=== PATIENT | female | born 1985 | race Caucasian/White ===

== ENCOUNTER 2019-06-09 19:40 | Emergency (ER) | payer OTHER ==
[~2019-06-09] VITALS: Ht 170.2 cm; Wt 66.7 kg
--- NOTE | 2019-06-09 20:04 | PHYS DOC ---
Past History Past Medical History: No Pertinent History Past Surgical History: Oophorectomy Additional Past Surgical Histo: ectopic with right side oophorectomy, hiatal hernia repair Alcohol Use: Rarely Drug Use: None Adult General Chief Complaint Chief Complaint: PAIN ON URINATION HPI HPI Patient is a pleasant 34-year-old female who presents to the emergency department for evaluation. She states that for the past 2 days, she has had urinary frequency, hesitancy, and dysuria, although no hematuria, or foul- smelling urine. She denies any vaginal discharge, or concern for STDs. She has not had any abdominal pain, nausea, vomiting or fevers. Her LMP recently ended, and she does not think she is . There are no alleviating or exacerbating factors to her symptoms except that urination causes pain. Review of Systems Review of Systems Constitutional: Denies fever or chills [] GI: Denies abdominal pain, nausea, vomiting, bloody stools or diarrhea [] : Denies vaginal bleeding or discharge or hematuria [] Musculoskeletal: Denies back pain or joint pain [] Integument: Denies rash or skin lesions [] Physical Exam Physical Exam PHYSICAL EXAM: CONSTITUTIONAL: Well developed, well nourished HEAD: normocephalic, atraumatic EENT: PERRL, EOMI. Conjunctivae normal color, sclerae non-icteric; moist mucous membranes. NECK: Supple, non-tender; no meningismus. LUNGS: Lungs CTA, breathing even and unlabored. Normal air movement. HEART: Regular rate and rhythm, no murmur CHEST: No deformity; non-tender ABDOMEN: The abdomen is soft, and non-tender, no masses or bruits. EXTREM: Normal ROM; no deformity, no calf tenderness. Normal pulses palpable in all extremities. There is no pedal edema. SKIN: No rash; no diaphoresis NEURO: Alert; normal speech and cognition; CN's grossly intact; strength grossly intact without focal deficit. BACK: No CVA TTP. Current Patient Data Vital Signs Vital Signs Date Time Temp Pulse Resp B/P (MAP) Pulse Ox O2 Delivery O2 Flow Rate FiO2 06/09/19 19:50 98.0 68 16 95 Room Air Lab Results Laboratory Tests Test 06/09/19 19:47 06/09/19 19:55 Urine Collection Type Unknown Urine Color Yellow Urine Clarity Hazy Urine pH 6.5 Urine Specific [place] 1.010 Urine Protein 30 mg/dl Urine Glucose (UA) Neg mg/dL Urine Ketones (Stick) Neg mg/dL Urine Blood Mod Urine Nitrite Neg Urine Bilirubin Neg Urine Urobilinogen Dipstick 0.2 mg/dL Urine Leukocyte Esterase Large Urine RBC 11-20 /HPF Urine WBC 20-40 /HPF Urine Squamous Epithelial Cells Occ /LPF Urine Bacteria Few /HPF Urine Test Negative Bedside Urine HCG, Qualitative hcg negative Laboratory Tests Test 06/09/19 19:55 POC Urine HCG, Qualitative hcg negative (Negative) EKG EKG [] Radiology/Procedures Radiology/Procedures [] Course & Med Decision Making Course & Med Decision Making Pertinent Lab studies reviewed. (See chart for details) []8:35 PM: The patient's condition remains stable. She remains asymptomatic at this time. I discussed test results with the patient. The hematuria that she is having does raise the possibility of a kidney stone although her symptoms are not highly suggestive of this. I discussed doing a CT scan of her abdomen to definitively rule out kidney stone, but we both agree that expectant management at a therapeutic trial of antibiotics were appropriate, I discussed importance of return to the emergency department for worsening symptoms, flank pain, fever, vomiting, or other new or concerning symptoms, and the importance of further outpatient evaluation and repeat urinalysis after course of antibiotics. Dragon Disclaimer Dragon Disclaimer This electronic medical record was generated, in whole or in part, using a voice recognition dictation system. Departure Departure: Impression: Primary Impression: UTI (urinary tract infection) Disposition: 01 HOME, SELF-CARE Condition: STABLE Patient Instructions: Hematuria, Adult, Urinary Tract Infection Scripts Sulfamethoxazole/Trimethoprim (BACTRIM 400-80 MG TABLET) 1 Each Tablet 1 TAB PO BID for - for 7 Days, #14 TAB 0 Refills Prov: LANCE MOYA MD 06/09/19 LANCE MOYA MD Jun 09, 2019 20:04
[2019-06-09 20:19] LABS: U PREG PATIENT NEGATIVE (NEG)
[2019-06-09 20:24] LABS: BACTERIA,URINE FEW /HPF (0-FEW); BILIRUBIN,URINE NEG (NEG); CLARITY,URINE HAZY; COLOR,URINE YELLOW; GLUCOSE,URINE NEG (NEG); NITRITE,URINE NEG (NEG); SQUAMOUS EPITHELIAL CELL,UR OCC /LPF; UROBILINOGEN,URINE 0.2 mg/dL (0.2 mg/dL); WBC,URINE 20-40 /HPF (0-4)
[2019-06-09] MEDS ORDERED: SULF1TAB23 PO (20:36)
[2019-06-09 20:40] VITALS: BP 140/73
[2019-06-09] MEDS ORDERED: SMZ/TMP 800/160MG TABLET. PO ONE (20:45)
== END 2019-06-09 20:45 | disposition home or self-care (01) ==
LOC: ER 19:40
DX: N39.0 Urinary tract infection, site not specified (principal)
CPT/HCPCS: 81001; 81025; 87086; 87186; 99284

== ENCOUNTER 2019-09-20 13:28 | Emergency (ER) | payer OTHER ==
[~2019-09-20] VITALS: Ht 170.2 cm; Wt 69.3 kg
[2019-09-20 13:28] VITALS: BP 127/72
[~2019-09-20 13:28] MED LIST: SULF1TAB23 PO
--- NOTE | 2019-09-20 13:53 | PHYS DOC ---
Past History Past Medical History: No Pertinent History Past Surgical History: Oophorectomy Additional Past Surgical Histo: ectopic with right side oophorectomy, hiatal hernia repair Alcohol Use: Rarely Drug Use: None Adult General Chief Complaint Chief Complaint: PAIN ON URINATION [facility] Patient is a 34-year-old female who presents with complaint of pain on urination and urinary frequency that started about a week ago but has gotten worse and last 24 hours. Patient denies any fever. She denies any back pain.[] Review of Systems Review of Systems Constitutional: Denies fever or chills [] Respiratory: Denies cough or shortness of breath [] Cardiovascular: No additional information not addressed in [facility] [] GI: Denies abdominal pain, nausea, vomiting or diarrhea [] Integument: Denies rash or skin lesions [] Neurologic: Denies headache, focal weakness or sensory changes [] Allergies Allergies Allergies Coded Allergies Type Severity Reaction Last Updated Verified No Known Drug Allergies 06/09/19 No Physical Exam Physical Exam Constitutional: Well developed, well nourished, no acute distress, non-toxic appearance. [] Cardiovascular:Heart rate regular rhythm, no murmur [] Lungs & Thorax: Bilateral breath sounds clear to auscultation [] Abdomen: Bowel sounds normal, soft, no tenderness. [] Skin: Warm, dry, no erythema, no rash. [] Neurologic: Alert and oriented X 3, no focal deficits noted. [] Current Patient Data Vital Signs Vital Signs Date Time Temp Pulse Resp B/P (MAP) Pulse Ox O2 Delivery O2 Flow Rate FiO2 09/20/19 13:28 98.0 72 16 127/72 (90) 100 Room Air EKG EKG [] Radiology/Procedures Radiology/Procedures [] Course & Med Decision Making Course & Med Decision Making Pertinent Labs and Imaging studies reviewed. (See chart for details) [] Dragon Disclaimer Dragon Disclaimer This electronic medical record was generated, in whole or in part, using a voice recognition dictation system. Departure Departure: Impression: Primary Impression: Dysuria Disposition: 01 HOME, SELF-CARE Condition: STABLE Referrals: PCP,NO (PCP) Patient Instructions: Dysuria Scripts Sulfamethoxazole/Trimethoprim (BACTRIM DS TABLET) 1 Each Tablet 1 TAB PO BID for infection for 5 Days, #10 TAB 0 Refills Prov: AMARILYS TANG Jr. DO 09/20/19 AMARILYS TANG Jr. DO Sep 20, 2019 13:53
[2019-09-20 14:06] LABS: BACTERIA,URINE 0 /HPF (0-FEW); BILIRUBIN,URINE NEG (NEG); CLARITY,URINE CLEAR; COLOR,URINE YELLOW; GLUCOSE,URINE NEG (NEG); NITRITE,URINE NEG (NEG); RBC,URINE 0 /HPF (0-2); UROBILINOGEN,URINE 0.2 mg/dL (0.2 mg/dL); WBC,URINE RARE /HPF (0-4)
[2019-09-20 14:07] LABS: SQUAMOUS EPITHELIAL CELL,UR OCC /LPF
[2019-09-20] MEDS ORDERED: SULF1TAB24 PO (14:20)
== END 2019-09-20 14:25 | disposition home or self-care (01) ==
LOC: ER 13:28
DX: R30.0 Dysuria (principal); R35.0 Frequency of micturition
CPT/HCPCS: 81001; 99283